=== PATIENT | male | born 1980 | race Two or more races ===

== ENCOUNTER 2019-08-23 04:27 | Emergency (ER) | payer SELFPAY ==
[~2019-08-23] VITALS: Ht 167.6 cm; Wt 76.2 kg
[2019-08-23 04:45] VITALS: BP 125/67
[2019-08-23] MEDS ORDERED: Tetanus/Diptheria/Pertussis IM ONE (04:45)
--- NOTE | 2019-08-23 04:45 | NUR ---
ED Nurse Note: Pt walked into ED for c/o dog bite that happened a month ago on R leg. No bite raffaele noted. Pt denies any pain or any other complaint at this time. Pt is aaox4, no cardiac or respiratory distress noted.
--- NOTE | 2019-08-23 04:50 | NUR ---
ED Nurse Note: charge nurse aware of no rabies form being faxed. no information on animal was able to be provided by pt.
--- NOTE | 2019-08-23 04:52 | Emergency Room Report ---
History of Present Illness General Chief Complaint: Animal Bite Source: Patient Present Illness HPI 39-year-old male states that he was touched by a dog/possibly bit on the right thigh 40 days ago, patient was evaluated in outside hospital no acute indications patient states he wants a rabies shot even though he was already evaluated at another hospital patient denies any fever/chills patient states he also wants a tetanus shot, he states he went to [facility] he went to [place] [facility] and no one will give him rabies shots and now he presents here even though he is 40 days out from being allegedly bitten/touched by a dog Allergies: Uncoded Allergies: PENICILLIN (Allergy, Unknown, 08/23/19) Patient History Past Medical History: see triage record Reviewed Nursing Documentation: PMH: Agreed; PSxH: Agreed Nursing Documentation-PMH Past Medical History: No Stated History Review of Systems All Other Systems: negative except mentioned in HPI Physical Exam Vital Signs Date Time Temp Pulse Resp B/P (MAP) Pulse Ox O2 Delivery O2 Flow Rate FiO2 08/23/19 04:35 98.2 78 18 125/67 (86) 96 Room Air General Appearance: well appearing, no apparent distress Head: normocephalic, atraumatic Eyes: bilateral eye PERRL, bilateral eye EOMI ENT: hearing grossly normal, normal voice Neck: full range of motion, supple Respiratory: no respiratory distress, speaking full sentences Musculoskeletal: no calf tenderness Neurologic: alert, normal gait Psychiatric: mood/affect normal Skin: no rash Medical Decision Making Diagnostic Impression: Primary Impression: Bite by animal ER Course 39-year-old male presents with an alleged bite from animal patient is already 40 days out, if patient were to have developed rabies he would have developed a ready patient was already seen at [facility], other hospitals in urgent care and did not receive a rabies shot low suspicion for actual pathology, view of the thigh showed no bite fernandez, no excoriations, patient states that he may have been bitten but is not sure or maybe the dog's nose touched his body Disposition home with return precautions, Tdap was given Last Vital Signs Date Time Temp Pulse Resp B/P (MAP) Pulse Ox O2 Delivery O2 Flow Rate FiO2 08/23/19 04:35 98.2 78 18 125/67 (86) 96 Room Air Disposition: HOME, SELF-CARE Condition: Stable [facility]: [facility] Patient Instructions: Animal Bite Additional Instructions: The patient was provided with discharge instructions, notified to follow-up with a primary care doctor and or specialist in the next 24-48 hours, and to return to the ED if they have worsening of their symptoms. Please note that this report is being documented using DRAGON technology. This can lead to erroneous entry secondary to incorrect interpretation by the dictating instrument. Genaro Reeves MD Aug 23, 2019 04:52
[2019-08-23 05:00] VITALS: BP 125/67
--- NOTE | 2019-08-23 05:00 | NUR ---
ER DISCHARGE NOTE: Patient is cleared to be discharged per ERMD, pt is aox4, on room air, with stable vital signs. pt was given dc instructions, pt was able to verbalize understanding, pt id band removed. pt is able to ambulate with steady gait. pt took all belongings.
== END 2019-08-23 06:15 | disposition home or self-care (01) ==
LOC: EMR 06:10
DX: S71.151A Open bite, right thigh, initial encounter (principal); W54.0XXA Bitten by dog, initial encounter; Y92.9 Unspecified place or not applicable; Z23 Encounter for immunization; Z20.3 Contact with and (suspected) exposure to rabies
CPT/HCPCS: 90471; 90715; 99282

== ENCOUNTER 2019-08-31 16:43 | Emergency (ER) | payer SELFPAY ==
[~2019-08-31] VITALS: Ht 182.9 cm; Wt 72.6 kg
[2019-08-31 16:50] VITALS: BP 117/67
--- NOTE | 2019-08-31 16:50 | NUR ---
ED Nurse Note: pt. was here on 08/23/19 with bog bite, now he came for recheck if he needs rabies shot. Pt's VSS, on RA no signs of acute distress.
[2019-08-31] MEDS ORDERED: RISPERDAL2 MG ORAL (16:53)
--- NOTE | 2019-08-31 17:10 | Emergency Room Report ---
History of Present Illness General Chief Complaint: General Complaint Source: Patient Present Illness HPI 39-year-old male with no significant past medical history here requesting the rabies shots. Patient was seen at [facility] nearly 1 week ago due to an animal bite that occurred 2 weeks prior to that visit. Patient reports that prior to that he had gone to [place] and was treated with antibiotics. Patient received a tetanus shot last visit at [facility] and was told that if he had rabies he will be symptomatic. According to patient he was told at [facility] that due to not having supplies of rabies vaccination he needs to go to [facility] for rabies vaccination he did go to [facility] and did not receive any rabies injection as he was also told that it is unlikely that he has rabies. Patient complains of left ear pruritus, and feeling fatigued and reports that he looked on [employer] and also the symptoms of late onset of rabies. I explained to the patient that rabies has symptoms immediately after exposure and the fact that it has been over a month post animal bite which was done by a [place] Larose who has a known blood bank worker and unknown vaccination status patient is unlikely to have it however can follow-up with [facility] poison control if he has any further questions. We also do not carry this vaccination at this time. Allergies: Coded Allergies: PENICILLINS (Verified Allergy, Unknown, 08/23/19) Patient History Past Medical History: see triage record Past Surgical History: unable to obtain Pertinent Family History: none Immunizations: UTD Reviewed Nursing Documentation: PMH: Agreed; PSxH: Agreed Nursing Documentation-PMH Past Medical History: No Stated History Review of Systems All Other Systems: negative except mentioned in HPI Physical Exam Vital Signs Date Time Temp Pulse Resp B/P (MAP) Pulse Ox O2 Delivery O2 Flow Rate FiO2 08/31/19 16:48 98.2 97 17 117/67 (84) 99 Room Air Sp02 EP Interpretation: reviewed, normal General Appearance: no apparent distress, alert, GCS 15, non-toxic Head: normocephalic, atraumatic Eyes: bilateral eye normal inspection, bilateral eye PERRL ENT: hearing grossly normal, normal pharynx, no angioedema, normal voice Neck: full range of motion, supple/symm/no masses Respiratory: chest non-tender, lungs clear, normal breath sounds, no rhonchi, no wheezing, speaking full sentences Cardiovascular #1: regular rate, rhythm, no edema, no murmur Gastrointestinal: normal bowel sounds, non tender, soft, non-distended, no guarding, no rebound Rectal: deferred Genitourinary: no CVA tenderness Neurologic: alert, motor strength/tone normal, oriented x3, sensory intact, responsive, speech normal Psychiatric: judgement/insight normal, memory normal, mood/affect normal, no suicidal/homicidal ideation Skin: no rash Lymphatic: no adenopathy Medical Decision Making PA Attestation All diagnoses and treatment plans were reviewed and discussed with my supervising physician Dr. Israel Diagnostic Impression: Primary Impression: Animal bite ER Course 39-year-old male with no significant past medical history here requesting the rabies shots. Patient was seen at [facility] nearly 1 week ago due to an animal bite that occurred 2 weeks prior to that visit. Patient reports that prior to that he had gone to [place] and was treated with antibiotics. Patient received a tetanus shot last visit at [facility] and was told that if he had rabies he will be symptomatic. According to patient he was told at [facility] that due to not having supplies of rabies vaccination he needs to go to [facility] for rabies vaccination he did go to [facility] and did not receive any rabies injection as he was also told that it is unlikely that he has rabies. Patient complains of left ear pruritus, and feeling fatigued and reports that he looked on [employer] and also the symptoms of late onset of rabies. I explained to the patient that rabies has symptoms immediately after exposure and the fact that it has been over a month post animal bite which was done by a [place] Larose who has a known blood bank worker and unknown vaccination status patient is unlikely to have it however can follow-up with [facility] poison control if he has any further questions. We also do not carry this vaccination at this time. Ddx considered but are not limited to : Cellulitis, infected animal bite, rabies , superficial infection, abscess Vital signs: are WNL, pt. is afebrile H&PE are most consistent with: Second encounter for animal bite which has been healed ORDERS: None ED INTERVENTIONS: None required at this time. DISCHARGE: At this time pt. is stable for d/c to home. Will provide printed patient care instructions, and any necessary prescriptions. Care plan and follow up instructions have been discussed with the patient prior to discharge. Follow-up with Department of Health at this time patient does not have rabies and no rabies vaccination necessary however I advised him to follow-up with primary care provider Health for further questions. Last Vital Signs Date Time Temp Pulse Resp B/P (MAP) Pulse Ox O2 Delivery O2 Flow Rate FiO2 08/31/19 16:48 98.2 97 17 117/67 (84) 99 Room Air Disposition: HOME, SELF-CARE Condition: Stable Patient Instructions: Animal Bite, [id number] Additional Instructions: At this time it has been a month after your animal bite and you have been treated with antibiotics if you have rabies you will be having symptoms at this time you have normal vital signs, and there is no suspicion for rabies however if you have any more questions or concerns in this regard you can contact the Department of Public Health. We do not carry this vaccination at this hospital at this time. Bernardo Jc Aug 31, 2019 17:10
[2019-08-31 17:18] VITALS: BP 117/67
--- NOTE | 2019-08-31 17:18 | NUR ---
ER DISCHARGE NOTE: Pt is cleared to be discharge per ERMD,. Pt is AOx4, on RA, VSS. pt was given dc and prescription instructions, pt was able to verbalize understanding, pt id band removed. pt is able to ambulate with steady gait. Pt left ER with all belongings.
== END 2019-08-31 17:18 | disposition home or self-care (01) ==
LOC: EMR 17:08
DX: Z20.3 Contact with and (suspected) exposure to rabies (principal); L29.9 Pruritus, unspecified; Z88.0 Allergy status to penicillin
CPT/HCPCS: 99281